=== PATIENT | female | born 1955 | race Caucasian/White ===

== ENCOUNTER → 2017-09-03 | Day surgery (SDC) | payer BC ==
[~2017-09-03] MED LIST: ACETAMINOPHEN 1,000 MG/100 ML BTL IV ONE; BUPIVACAINE 0.25% W/EPI MPF 30ML VIAL IVP ONE; LIDOCAINE 1% MDV (10MG/ML) 20ML VIAL SQ ONE; METOCLOPRAMIDE HCL 10 MG/2 ML VIAL IVP ONE; ONDANSETRON HCL IV 4 MG/2 ML VIAL IVP ONE; PROPOFOL 10 MG/ML VIAL IV ONE; SEVOFLURANE 250 ML INH ONE
--- NOTE | 2017-09-04 12:40 | Operative Note ---
DATE OF SURGERY: 09/03/2017 Surgeon: Reginald Mosqueda DO PREOPERATIVE DIAGNOSES: 1. Torn medial and lateral meniscus of the right knee. 2. Chondromalacia of the right knee. POSTOPERATIVE DIAGNOSES: 1. Torn medial and lateral meniscus, right knee. 2. Chondromalacia of the patellofemoral joint, medial femoral condyle, and lateral tibial plateau, right knee. OPERATION: 1. Arthroscopic partial medial and meniscectomy. 2. Arthroscopic chondroplasty of the patella and medial femoral condyle, right knee. DESCRIPTION OF PROCEDURE: This 62-year-old female was taken to the operating room and placed in the supine position on the operating room table where general anesthesia was induced. The right lower extremity was elevated. It was exsanguinated and the tourniquet inflated to 300 mmHg. Arthroscopic knee barnhart applied. Right knee prepped with Hibiclens and draped in the usual sterile fashion. An inferolateral portal was established for the 4 mm arthroscope. Initial evaluation of the joint demonstrated normal appearance of the suprapatellar pouch. The patellofemoral articulation appeared to be essentially normal other than some superficial grade 2 changes, small amount of degeneration was present and this was smoothed with the rotating shaver. Most of the articular cartilage, however, appeared normal. The medial and lateral gutters were found to be normal. The medial compartment was entered and a posterior root tear of the medial meniscus was present with a horizontal cleavage tear also being present in the posterior horn. Utilizing the basket forceps, we resected the unstable fragments of the meniscus, tapered the posterior root to a stable configuration. It was then probed and found to be stable. Grade 2 chondromalacia of the entire weightbearing surface of the medial femoral condyle was present and chondroplasty was performed to stabilize the articular cartilage there. The intracondylar notch was examined and found to be normal. The lateral compartment was entered and a root tear of the anterior horn of the lateral meniscus was present with horizontal cleavage components. We resected the unstable fragments of the meniscus utilizing the basket forceps and rotating shaver. There was also a root tear of the posterior horn of the lateral meniscus. This was actually more extensive than the medial side and it was resected with the rotating shaver to a stable configuration. The meniscus was then re-probed and confirmed to be stable. There was grade 2 chondromalacia of the lateral tibial plateau but it was not grossly unstable and it was not further disturbed. The joint was copiously irrigated and suctioned. The instruments were removed. The portals infiltrated with 0.25% Marcaine with epinephrine. Sterile dressings applied. Tourniquet and knee barnhart released and the patient taken to the recovery room in satisfactory condition. GROSS PATHOLOGY: This patient demonstrated tears of both the medial and lateral meniscus as described above with grade 2 chondromalacia of the patellofemoral articulation, lateral tibial plateau, and medial femoral condyle as described. CC: MD AGUILA Rasheed
== END | disposition home or self-care (01) ==
LOC: SUR 09:05
PROVIDERS: ATTEND Orthopaedic Surgery
DX: S83.281A Other tear of lateral meniscus, current injury, right knee, initial encounter (principal); S83.241A Other tear of medial meniscus, current injury, right knee, initial encounter; M22.41 Chondromalacia patellae, right knee; M94.261 Chondromalacia, right knee
CPT/HCPCS: 29881; 01400; J2405; J2765